=== PATIENT | female | born 1955 | race Caucasian/White ===

== ENCOUNTER 2016-08-08 07:10 | Emergency (ER) | payer OTHER ==
[2016-08-08 07:24] VITALS: BP 121/77
--- NOTE | 2016-08-08 07:31 | UC ---
Skin Complaint HPI - HPI Summary HPI Summary: c/o tick on R foot- noticed about 1 hour ago. She was outside all day yesterday and this was likely when she got it. no rash, no body aches or fevers or chills. - History of Current Complaint Chief Complaint: [facility]kin Time Seen by Provider: 08/08/16 07:30 Stated Complaint: TICK - Allergy/Home Medications Allergies/Adverse Reactions: Allergies Allergy/AdvReac Type Severity Reaction Status Date / Time No Known Allergies Allergy Verified 08/08/16 07:16 Home Medications: Home Medications Albuterol HFA INHALER* [Ventolin HFA Inhaler*] 1 - 2 puff INH Q4H PRN 08/08/16 [ History Confirmed 08/08/16] Allergy Medication 1 tab PO ONCE PRN 08/08/16 [History] Calcium 500 mg PO DAILY 08/08/16 [History Confirmed 08/08/16] Cholecalciferol [Vitamin D] 1,000 unit PO DAILY 08/08/16 [History Confirmed ] Multiple Vitamin [Multivitamins] 1 cap PO DAILY 08/08/16 [History Confirmed ] Review of Systems Constitutional: Negative Skin: Negative Eyes: Negative ENT: Negative Respiratory: Negative Cardiovascular: Negative Gastrointestinal: Negative Genitourinary: Negative Motor: Negative Neurovascular: Negative Musculoskeletal: Negative Neurological: Negative Psychological: Negative All Other Systems Reviewed And Are Negative: Yes PMH/Surg Hx/FS Hx/Imm Hx Previously Healthy: Yes - Surgical History Surgical History: Yes Surgery Procedure, Year, and Place: tonsilectomy. ankle. abd- bowel adhesions - Family History Known Family History: Positive: Hypertension, Diabetes - Social History Alcohol Use: None Substance Use Type: None Smoking Status (MU): Light Every Day Tobacco Smoker Type: Cigarettes Amount Used/How Often: 5 cigarettes daily Physical Exam Triage Information Reviewed: Yes Appearance: Well-Appearing, No Pain Distress - very pleasant Vital Signs: Initial Vital Signs Temp 97.7 F 08/08/16 07:19 Pulse 63 08/08/16 07:19 Resp 16 08/08/16 07:19 BP 121/77 08/08/16 07:19 Pulse Ox 100 08/08/16 07:19 Vital Signs Reviewed: Yes Eye Exam: Normal ENT Exam: Normal Neck exam: Normal Respiratory Exam: Normal Respiratory: Positive: Lungs clear, Normal breath sounds, No respiratory distress, No accessory muscle use Cardiovascular Exam: Normal Cardiovascular: Positive: RRR, No Murmur, Pulses Normal, Brisk Capillary Refill Abdomen Description: Positive: Nontender, Soft Musculoskeletal Exam: Normal Neurological Exam: Normal Psychological Exam: Normal Skin: Positive: Other - Rt anterior ankle with small - medium sized tick embeded. not moving. no rash. no erythema. Course/Dx - Course Course Of Treatment: Tic removed easily with tic remover w/o complication. - Differential Diagnoses - Skin Complaint Differential Diagnoses: Tick Born Illness - Diagnoses Provider Diagnoses: Tic bite Discharge - Discharge Plan Condition: Stable Disposition: HOME Prescriptions: DOXYcycline CAP(*) [DOXYcycline 100MG CAP(*)] 100 mg PO ONCE #2 cap Patient Education Materials: Tick Bite (ED) Referrals: Ragini Jean-Baptiste MD [Primary Care Provider] - 4 Days Additional Instructions: Watch for any signs of a bull's eye rash, joint aches, fever.
== END 2016-08-08 07:53 | disposition home or self-care (01) ==
LOC: UCCORT 07:10
DX: S90.561A Insect bite (nonvenomous), right ankle, initial encounter (principal); W57.XXXA Bitten or stung by nonvenomous insect and other nonvenomous arthropods, initial encounter; Y93.9 Activity, unspecified; Y92.9 Unspecified place or not applicable; F17.210 Nicotine dependence, cigarettes, uncomplicated
CPT/HCPCS: 99202; G0463